=== PATIENT | female | born 1940 | race African-American/Black ===

== ENCOUNTER 2016-09-17 19:49 | Inpatient (IN) | payer MEDICARE ==
--- NOTE | ~2016-09-17 | HP ---
History And Physical [place] [id number] [facility] [place]. [address] NAME: TANIA DOTSON : 39 STATUS : ADM Alcides PAT#: [id number] AGE: 76 ADM/REG DATE : 09/17/16 MR#: [id number] REPORT SERV DATE: 09/21/16 DICTATED BY: LIVIA GARCIA DATE: 09/21/16 REPORT STATUS : Draft TRANSCRIBED BY: MODL DATE: 09/21/16 DATE OF ADMISSION: 09/17/2016 CHIEF COMPLAINT: Right hip pain. HISTORY OF PRESENT ILLNESS: This is a 76-year-old female who is a [employer] participant with history of end-stage renal disease, hypertension, hyperlipidemia, asthma with an allergy component who fell at home after she tripped while walking in her house. She was brought to the emergency room and a CT scan of the pelvis revealed an acute nondisplaced subcapital right femoral neck fracture. She has been admitted for further management. PAST MEDICAL HISTORY: 1. GI bleed. 2. End-stage renal disease, on hemodialysis. 3. Hypertension. 4. Diabetes mellitus. 5. Anemia secondary to end-stage renal disease. 6. Hyperlipidemia. 7. Asthma with an allergy component. 8. Vascular dementia. 9. Osteoarthritis. 10.Gastroesophageal reflux disease. 11.Osteoporosis. REVIEW OF SYSTEMS: A 10-point review of systems was performed and was negative except as mentioned above. FAMILY HISTORY: Noncontributory. SOCIAL HISTORY: The patient lives alone. She has 2 daughters who are actively involved in her care. She is nonsmoker and denies any illicit drug use. She is a [employer] participant. ALLERGIES: NO KNOWN DRUG ALLERGIES. MEDICATIONS: Please see the medication list for details, but in brief, she is on amlodipine 10 mg daily, aspirin 81 mg, budesonide twice a day, calcitriol 0.25 mcg daily, Coreg 25 mg twice a day, Claritin 10 mg daily, clonidine 0.1 mg twice daily, Colace 100 mg twice a day, furosemide 40 mg in the evening, Dymista, lisinopril 10 mg daily, melatonin 1 mg at bedtime, Nephro-Mitchell 1 tablet daily, Perforomist 20 mcg twice a day, Prilosec 20 mg at bedtime, Renvela 800 mg, 3 tablets with meals, Robitussin DM p.r.n., simvastatin 20 mg daily, Singulair 10 mg daily, sodium bicarbonate 650 mg, trazodone 100 mg at bedtime, Tylenol p.r.n., Ventolin inhaler p.r.n., and vitamin D 1000 units daily. PHYSICAL EXAMINATION: VITAL SIGNS: Temperature 98.3, pulse 84, blood pressure 151/73, respirations 15, O2 History And Physical [address] [address] NAME: TANIA DOTSON : 39 STATUS : ADM Alcides PAT#: [id number] AGE: 76 ADM/REG DATE : 09/17/16 MR#: [id number] REPORT SERV DATE: 09/21/16 DICTATED BY: LIVIA GARCIA DATE: 09/21/16 REPORT STATUS : Draft TRANSCRIBED BY: JADA DATE: 09/21/16 saturation 98% on room air. GENERAL: The patient is alert, awake, in no acute distress. HEENT: Pupils are reactive to light. No icterus or significant pallor noted. Oropharynx was moist. NECK: Supple. No JVD noted. CHEST: Clear to auscultation bilaterally. Normal respiratory effort. CARDIOVASCULAR: Regular rate and rhythm, has a 2 x 6 systolic murmur. ABDOMEN: Soft, nontender, nondistended. Bowel sounds are present. EXTREMITIES: No edema noted. No cyanosis. Right leg appears externally rotated. LABORATORY DATA: Sodium 136, potassium 4.4, chloride 97, BUN 24, creatinine 5.75, glucose is 130, calcium 9.6. WBC 5.7, hemoglobin 11.6, hematocrit 35.2, platelets 227. Chest x-ray revealed stable enlargement of the cardiac silhouette. CT scan of the pelvis revealed an acute nondisplaced subcapital right femoral neck fracture without impaction. ASSESSMENT AND PLAN: 1. Right hip fracture, management per Ortho. The patient has not been able to withstand weightbearing and standing up and walking with the physical therapist and she will likely need surgery. 2. End-stage renal disease. The patient is on hemodialysis Tuesday, Tuesday, and Tuesday. Renal has been consulted and they will be seeing her and ordering dialysis. 3. Hypertension. Blood pressures are better now that she has received her antihypertensives. She did have higher systolic blood pressures in the 180-200 range when she was admitted initially. P.r.n. hydralazine has been ordered. 4. Asthma with allergies. We will continue her home medications. 5. Hyperlipidemia, on simvastatin. We will continue the same. 6. Preop risk. EKG was evaluated. She has a baseline abnormal EKG with some Q-waves present; however, she has no complaints of chest pain at this time. She also has increased risk secondary to her end-stage renal disease. However, I feel at this point with the Rogers cardiac risk index being around 2.4% for the risk of major cardiac complications, her risks are definitely lower than the benefits of surgery. I discussed the same with the patient and she was wanting to proceed with surgery. CODE STATUS: CPR for treatment. SIRISHA/JADA Livia Garcia M.D. / [id number] CC: Marielle White M.D.
--- NOTE | ~2016-09-17 | CN ---
Consultation Report [facility] [address] [place]. [address] NAME: TANIA DOTSON : 38 STATUS : ADM Alcides PAT#: [id number] AGE: 76 ADM/REG DATE : 09/17/16 MR#: [id number] REPORT SERV DATE: 09/19/16 DICTATED BY: PADMINI RUIZ DATE: 09/18/16 REPORT STATUS : Draft TRANSCRIBED BY: MODL DATE: 09/18/16 DATE OF CONSULTATION: 09/18/2016 CHIEF COMPLAINT: Right hip pain. HISTORY OF PRESENT ILLNESS: This pleasant 76-year-old female noted to have a same-level fall, was brought to [facility] Emergency Room, where she was noted to have a nondisplaced right femoral neck fracture, that was picked up on CT scan but normal on plain film. I was subsequently consulted. PAST MEDICAL HISTORY: Significant for end-stage renal disease with dialysis three times a week; history of malignant hypertension; type 2 diabetes, diet controlled; chronic anemia; hyperlipidemia; asthma; and sleep apnea. ALLERGIES: NO KNOWN DRUG ALLERGIES. CURRENT MEDICATIONS: Simvastatin, Claritin, carvedilol, Renvela, Singulair, Perforomist, nebulizer, trazodone, Prilosec, Colace. SOCIAL HISTORY: She lives alone. Retired. Nonsmoker. She has a daughter and a granddaughter who is a nurse practitioner who are active in her care and I have spoken with today. FAMILY HISTORY: Noncontributory. REVIEW OF SYSTEMS: No headache, chest pain, nausea, vomiting, or other constitutional symptoms per full 14- point systematic review. PHYSICAL EXAMINATION: GENERAL: On exam, I see lady who looks stated age. AAO x3. Pleasant, cooperative, and in no apparent distress. She was examined in her room of 234 on the morning of 09/18/2016. HEENT: Pupils equally round and reactive to light and accommodation. Extraocular muscles intact. CHEST: Clear auscultation bilaterally. HEART: Regular rate and rhythm. ABDOMEN: Soft, nontender, nondistended. Bowel sounds are present. Bilateral upper extremities and left lower extremity shows good active and passive range of motion. Good distal pulses. No peripheral edema. Good sensation. Her right lower extremity is limited by right groin pain but otherwise no skin breaks. Good distal pulses. No peripheral edema. Good sensation. RADIOGRAPHS: Normal CT scan, nondisplaced, valgus impacted femoral neck fracture. Original plan was physical therapy and nonoperative treatment, however, she did not tolerate physical therapy, and upon my examination this afternoon approximately 4:30 in the afternoon, she Consultation Report [place] [id number] [place]. [address] NAME: TANIA DOTSON : 39 STATUS : ADM Alcides PAT#: [id number] AGE: 76 ADM/REG DATE : 09/17/16 MR#: [id number] REPORT SERV DATE: 09/19/16 DICTATED BY: PADMINI RUIZ DATE: 09/18/16 REPORT STATUS : Draft TRANSCRIBED BY: JADA DATE: 09/18/16 wishes to have undergo closed reduction percutaneous pinning, and she does not believe that she will be able tolerate nonoperative care. I have discussed the risks and benefits at length with her. I have also discussed with her daughter and granddaughter risks and benefits of conservative closed treatment versus closed reduction percutaneous pinning versus should this fail total hip arthroplasty. They verbalized understanding and wished to proceed. RAI/JADA Padmini Ruiz M.D. / [id number] CC: Bekah Valentine M.D.
--- NOTE | ~2016-09-17 | OP ---
Record Of Operation [facility] [address] [place]. [address] NAME: TANIA DOTSON : 38 STATUS : ADM Alcides PAT#: [id number] AGE: 76 ADM/REG DATE : 09/17/16 MR#: [id number] REPORT SERV DATE: 09/21/16 DICTATED BY: MENDEL RAMIREZ DATE: 09/21/16 REPORT STATUS : Draft TRANSCRIBED BY: MODL DATE: 09/21/16 DATE OF PROCEDURE: 09/20/2016 PREOPERATIVE DIAGNOSIS: Right femoral neck fracture, impacted. POSTOPERATIVE DIAGNOSIS: Right femoral neck fracture, impacted. PROCEDURE: ORIF, right femoral neck fracture. SURGEON: Gloria Ramirez M.D. VOLUNTEER SERVICES SPECIALIST: See chart. DESCRIPTION OF PROCEDURE: The patient was taken to the operating room and placed supine on the table in normal fashion without incident. Sedation was induced per the anesthesiologist. The patient was carefully positioned, padded, prepped, and draped in normal sterile fashion on the fracture table. Local infiltration of 10 mL of 1% lidocaine and 10 mL of 0.25% Marcaine with epinephrine were done. This allowed placement of a percutaneous guidewire center of the femoral head, checked in the AP and lateral views. This was followed by small incision. Parallel pin guide used to place two other pins. This was followed by depth gauge, drilling near cortex, and the screws were placed and tightened. The wound was irrigated, closed, and dressed sterilely. After checking the AP and lateral views, the patient was awakened and taken to the postanesthesia care unit without incident. COMPLICATIONS: None. SPECIMENS: None. ESTIMATED BLOOD LOSS: About 10 mL. WTB/MODL Gloria Ramirez M.D. / [id number] CC: Marielle White M.D.
[2016-09-17 19:38] LABS: ALKALINE PHOSPHATASE 116 U/L (45-117); CALCIUM, SERUM 9.6 MG/DL (8.5-10.4); CHLORIDE, SERUM 97 MMOL/L (96-112); CREATININE 5.75 MG/DL (0.55-1.02); GFR AFRICAN AMERICAN 8 ML/MIN (>=60); GFR NON AFRICAN AMERICAN 7 ML/MIN (>=60); GLOBULIN 3.6 G/DL (2.5-4.1); GLUCOSE, SERUM 130 MG/DL (60-99); POTASSIUM, SERUM 4.4 MMOL/L (3.5-5.3); SGOT(AST) 16 U/L (5-40); SGPT(ALT) 19 U/L (5-65); SODIUM, SERUM 136 MMOL/L (135-148); TOTAL BILIRUBIN 0.3 MG/DL (0-1.2); TOTAL PROTEIN 7.3 G/DL (6.0-8.5)
[2016-09-17 19:39] LABS: ALBUMIN 3.7 G/DL (3.5-5.0); BUN (BLOOD UREA NITROGEN) 24 MG/DL (6-23); CO2 (CARBON DIOXIDE) 36 MMOL/L (24-34)
[~2016-09-17 19:49] MED LIST: ACET500CAP PO; AMARYL1 MG PO; ASAB PO; CAT1 PO; CAT2 PO; CLARIT10 PO; COREG25 PO; DOK100 MG PO; DSS PO; DYMISTA NASAL S23 GM NAS; GGDM5ML PO; GLUCOSE GEL; HALF81 PO; IMOD PO; L20 PO; L40 PO; MULTIPLE VIT PO; NEPHRO-VITE PO; NORV10 PO; NORV25 PO; PERFOROM INH; PRILO PO; PRIN10 PO; PROAIR HFA INH; PROCRIT IM; PULRESP.5 INH; RENVELA800 MG PO; RHINOCORT; ROCALTROL 0.0.25 MCG PO; ROCALTROL0.25 MCG OR; ROCALTROL0.25 MCG PO; SENTAB PO; SEVE800T PO; SINGULAIR1 PO; SODBICAR10 PO; TRAZ100 PO; VITAMIN D1000 UNI1 PO; ZOCOR10 PO; ZOCOR20 PO
[2016-09-17 20:38] LABS: BASOPHILS 0.5 %; BASOPHILS ABSOLUTE 0.03 10/3/uL (0.0-0.16); EOSINOPHILS 2.1 %; EOSINOPHILS ABSOLUTE 0.12 10/3/uL (0.0-0.53); HEMATOCRIT 35.2 % (36.0-48.0); HEMOGLOBIN 11.6 g/dL (12.0-16.0); IMMATURE GRANULOCYTES 0.2 %; IMMATURE GRANULOCYTES ABSOLUTE 0.01 10/3/uL (0.0-0.11); LYMPHOCYTES 15.1 %; LYMPHOCYTES ABSOLUTE 0.86 10/3/uL (0.67-4.30); MEAN CORPUSCULAR HEMOGLOB 31.3 pg (26.0-34.0); MEAN PLATELET VOLUME 10.6 fL (9.2-13.0); MONOCYTES 8.8 %; NEUTROPHILS 73.3 %; NEUTROPHILS ABSOLUTE 4.17 10/3/uL (2.02-8.40); PLATELET COUNT 227 10/3/uL (150-400); RBC DISTRIBUTION WIDTH 13.7 % (12.0-16.0); RED CELL COUNT 3.71 10/6/uL (4.0-5.6); WHITE BLOOD CELLS 5.7 10/3/uL (4.5-10.5)
[2016-09-17 20:39] LABS: ER CBC TAT 1 Hrs 20 Mins; MANUAL DIFF NO %; MEAN CORPUSCULAR VOLUME 94.9 fL (80-100)
[2016-09-17] MEDS ORDERED: NORV10 PO (21:14)
[2016-09-17] MEDS ORDERED: HALF81 PO (21:15)
[2016-09-17] MEDS ORDERED: CAT1 PO (21:15)
[2016-09-17] MEDS ORDERED: PRIN10 PO (21:16)
[2016-09-17] MEDS ORDERED: PERFOROM INH (21:16)
[2016-09-17] MEDS ORDERED: L40 PO (21:16)
[2016-09-17] MEDS ORDERED: MELATONIN1 M1 PO (21:16)
[2016-09-17] MEDS ORDERED: RENVELA800 MG PO (21:17)
[2016-09-17] MEDS ORDERED: PULRESP.5 INH (21:17)
[2016-09-17] MEDS ORDERED: PRILO PO (21:17)
[2016-09-17] MEDS ORDERED: GGDM5ML PO (21:18)
[2016-09-17] MEDS ORDERED: ZOCOR20 PO (21:18)
[2016-09-17] MEDS ORDERED: SODBICAR10 PO (21:18)
[2016-09-17] MEDS ORDERED: TRAZ100 PO (21:19)
[2016-09-17 22:09] LABS: ASCORBIC ACID (UR NOT ORDER) NEG (NEG); BILIRUBIN, URINE NEGATIVE (NEG); ER URINALYSIS TAT 0 Hrs 14 Mins; KETONE, URINE NEGATIVE (NEG); LEUKOCYTE ESTERASE(NOT OR NEG (NEG); NITRITE (URINE) NEG (NEG); WBC (NOT ORDERED) (RFLEX) < 1 (0-5)
[2016-09-18 17:46] LABS: PARTIAL THROMBO TIME 33.1 SEC (22.5-37.2)
[2016-09-18 19:34] LABS: INTERNATIONAL NORMAL RATI 1.1 UNITS (-); PROTIME (NOT ORD) 13.8 SEC (12.0-14.5)
[2016-09-19 06:11] LABS: BASOPHILS 0.3 %; BASOPHILS ABSOLUTE 0.02 10/3/uL (0.0-0.16); EOSINOPHILS 2.6 %; EOSINOPHILS ABSOLUTE 0.18 10/3/uL (0.0-0.53); HEMOGLOBIN 10.1 g/dL (12.0-16.0); IMMATURE GRANULOCYTES 0.3 %; IMMATURE GRANULOCYTES ABSOLUTE 0.02 10/3/uL (0.0-0.11); LYMPHOCYTES 15.9 %; LYMPHOCYTES ABSOLUTE 1.08 10/3/uL (0.67-4.30); MEAN CORPUS HGB CONC 33.2 g/dL (32.0-36.0); MEAN CORPUSCULAR HEMOGLOB 31.1 pg (26.0-34.0); MEAN CORPUSCULAR VOLUME 93.5 fL (80-100); MEAN PLATELET VOLUME 10.6 fL (9.2-13.0); MONOCYTES 10.6 %; MONOCYTES ABSOLUTE 0.72 10/3/uL (0.21-1.20); NEUTROPHILS 70.3 %; NEUTROPHILS ABSOLUTE 4.79 10/3/uL (2.02-8.40); PLATELET COUNT 185 10/3/uL (150-400); RBC DISTRIBUTION WIDTH 13.7 % (12.0-16.0); RED CELL COUNT 3.25 10/6/uL (4.0-5.6); WHITE BLOOD CELLS 6.8 10/3/uL (4.5-10.5)
[2016-09-19 06:12] LABS: HEMATOCRIT 30.4 % (36.0-48.0); MANUAL DIFF NO %
[2016-09-19 06:26] LABS: CHLORIDE, SERUM 100 MMOL/L (96-112); GLUCOSE, SERUM 117 MG/DL (60-99); POTASSIUM, SERUM 4.6 MMOL/L (3.5-5.3); SGOT(AST) 13 U/L (5-40); SGPT(ALT) 14 U/L (5-65); SODIUM, SERUM 132 MMOL/L (135-148); TOTAL BILIRUBIN 0.3 MG/DL (0-1.2); TOTAL PROTEIN 6.2 G/DL (6.0-8.5)
[2016-09-19 06:29] LABS: A/G RATIO 0.8 (0.7-1.9); ALBUMIN 2.8 G/DL (3.5-5.0); ALKALINE PHOSPHATASE 90 U/L (45-117); BUN (BLOOD UREA NITROGEN) 46 MG/DL (6-23); CO2 (CARBON DIOXIDE) 27 MMOL/L (24-34); CREATININE 8.64 MG/DL (0.55-1.02); GFR AFRICAN AMERICAN 5 ML/MIN (>=60); GFR NON AFRICAN AMERICAN 4 ML/MIN (>=60); GLOBULIN 3.4 G/DL (2.5-4.1)
[2016-09-19 06:33] LABS: INTERNATIONAL NORMAL RATI 1.2 UNITS (-); PROTIME (NOT ORD) 14.7 SEC (12.0-14.5)
[2016-09-20 08:12] LABS: BASOPHILS 0.1 %; BASOPHILS ABSOLUTE 0.01 10/3/uL (0.0-0.16); EOSINOPHILS 2.7 %; EOSINOPHILS ABSOLUTE 0.21 10/3/uL (0.0-0.53); HEMATOCRIT 27.9 % (36.0-48.0); HEMOGLOBIN 9.6 g/dL (12.0-16.0); IMMATURE GRANULOCYTES 0.3 %; IMMATURE GRANULOCYTES ABSOLUTE 0.02 10/3/uL (0.0-0.11); LYMPHOCYTES 9.1 %; LYMPHOCYTES ABSOLUTE 0.71 10/3/uL (0.67-4.30); MEAN CORPUS HGB CONC 34.4 g/dL (32.0-36.0); MEAN CORPUSCULAR HEMOGLOB 31.8 pg (26.0-34.0); MEAN CORPUSCULAR VOLUME 92.4 fL (80-100); MEAN PLATELET VOLUME 10.7 fL (9.2-13.0); MONOCYTES 9.4 %; MONOCYTES ABSOLUTE 0.73 10/3/uL (0.21-1.20); NEUTROPHILS 78.4 %; NEUTROPHILS ABSOLUTE 6.08 10/3/uL (2.02-8.40); PLATELET COUNT 166 10/3/uL (150-400); RBC DISTRIBUTION WIDTH 13.7 % (12.0-16.0); RED CELL COUNT 3.02 10/6/uL (4.0-5.6); WHITE BLOOD CELLS 7.8 10/3/uL (4.5-10.5)
[2016-09-20 08:14] LABS: MANUAL DIFF NO %
[2016-09-20 08:25] LABS: ALBUMIN 2.6 G/DL (3.5-5.0); CHLORIDE, SERUM 95 MMOL/L (96-112); CO2 (CARBON DIOXIDE) 26 MMOL/L (24-34); PHOSPHORUS, SERUM 5.7 MG/DL (2.5-4.5); POTASSIUM, SERUM 5.1 MMOL/L (3.5-5.3); SODIUM, SERUM 133 MMOL/L (135-148)
[2016-09-20 08:26] LABS: BUN (BLOOD UREA NITROGEN) 68 MG/DL (6-23); GFR AFRICAN AMERICAN 3 ML/MIN (>=60); GFR NON AFRICAN AMERICAN 3 ML/MIN (>=60); GLUCOSE, SERUM 156 MG/DL (60-99)
[2016-09-20 13:52] LABS: ASCORBIC ACID (UR NOT ORDER) NEG (NEG); BILIRUBIN, URINE NEGATIVE (NEG); KETONE, URINE NEGATIVE (NEG); LEUKOCYTE ESTERASE(NOT OR LARGE (NEG); WBC (NOT ORDERED) (RFLEX) 43 (0-5)
[2016-09-21 05:03] LABS: BASOPHILS 0.3 %; BASOPHILS ABSOLUTE 0.02 10/3/uL (0.0-0.16); EOSINOPHILS 2.4 %; EOSINOPHILS ABSOLUTE 0.18 10/3/uL (0.0-0.53); HEMATOCRIT 30.1 % (36.0-48.0); HEMOGLOBIN 9.8 g/dL (12.0-16.0); IMMATURE GRANULOCYTES 0.3 %; IMMATURE GRANULOCYTES ABSOLUTE 0.02 10/3/uL (0.0-0.11); INTERNATIONAL NORMAL RATI 1.2 UNITS (-); LYMPHOCYTES 9.2 %; LYMPHOCYTES ABSOLUTE 0.69 10/3/uL (0.67-4.30); MEAN PLATELET VOLUME 11.1 fL (9.2-13.0); MONOCYTES 12.1 %; MONOCYTES ABSOLUTE 0.91 10/3/uL (0.21-1.20); NEUTROPHILS 75.7 %; PLATELET COUNT 190 10/3/uL (150-400); PROTIME (NOT ORD) 15.2 SEC (12.0-14.5); RBC DISTRIBUTION WIDTH 13.7 % (12.0-16.0); RED CELL COUNT 3.16 10/6/uL (4.0-5.6); WHITE BLOOD CELLS 7.5 10/3/uL (4.5-10.5)
[2016-09-21 05:04] LABS: MANUAL DIFF NO %; MEAN CORPUS HGB CONC 32.6 g/dL (32.0-36.0); MEAN CORPUSCULAR VOLUME 95.3 fL (80-100)
[2016-09-21 05:07] LABS: BUN (BLOOD UREA NITROGEN) 39 MG/DL (6-23); CALCIUM, SERUM 9.7 MG/DL (8.5-10.4); CHLORIDE, SERUM 102 MMOL/L (96-112); CO2 (CARBON DIOXIDE) 28 MMOL/L (24-34); CREATININE 7.87 MG/DL (0.55-1.02); GFR AFRICAN AMERICAN 5 ML/MIN (>=60); GFR NON AFRICAN AMERICAN 4 ML/MIN (>=60); GLUCOSE, SERUM 114 MG/DL (60-99); POTASSIUM, SERUM 4.5 MMOL/L (3.5-5.3); SODIUM, SERUM 141 MMOL/L (135-148)
[2016-09-22 04:32] LABS: HEMATOCRIT 27.8 % (36.0-48.0); HEMOGLOBIN 9.2 g/dL (12.0-16.0); MEAN CORPUS HGB CONC 33.1 g/dL (32.0-36.0); MEAN CORPUSCULAR VOLUME 93.6 fL (80-100); MEAN PLATELET VOLUME 10.4 fL (9.2-13.0); PLATELET COUNT 215 10/3/uL (150-400); RBC DISTRIBUTION WIDTH 13.7 % (12.0-16.0); RED CELL COUNT 2.97 10/6/uL (4.0-5.6); WHITE BLOOD CELLS 5.9 10/3/uL (4.5-10.5)
[2016-09-22 04:38] LABS: INTERNATIONAL NORMAL RATI 1.2 UNITS (-); PROTIME (NOT ORD) 15.3 SEC (12.0-14.5)
[2016-09-22 04:39] LABS: MANUAL DIFF YES %
[2016-09-22 06:15] LABS: BASOPHILS 1 %; BASOPHILS ABSOLUTE (CALC) 0.06 10/3/uL (0.0-0.16); EOSINOPHILS 2 %; EOSINOPHILS ABSOLUTE (CALC) 0.12 10/3/uL (0.0-0.53); LYMPHOCYTES 16 %; LYMPHOCYTES ABSOLUTE (CALC) 0.94 10/3/uL (0.67-4.30); MONOCYTES 13 %; MONOCYTES ABSOLUTE (CALC) 0.77 10/3/uL (0.21-1.20); NEUTROPHILS ABSOLUTE (CALC) 4.01 10/3/uL (2.02-8.40); SEGMENTED NEUTROPHIL (0) 68 %; TOTAL NUCLEATED CELLS 100
[2016-09-22 06:16] LABS: PLATELET ESTIMATE ADQ (ADEQUATE); RBC MORPHOLOGY NORM (NORMAL)
[2016-09-22 09:32] LABS: ALBUMIN 2.7 G/DL (3.5-5.0); BUN (BLOOD UREA NITROGEN) 61 MG/DL (6-23); CALCIUM, SERUM 9.8 MG/DL (8.5-10.4); CHLORIDE, SERUM 99 MMOL/L (96-112); CO2 (CARBON DIOXIDE) 25 MMOL/L (24-34); CREATININE 9.82 MG/DL (0.55-1.02); GFR AFRICAN AMERICAN 4 ML/MIN (>=60); GFR NON AFRICAN AMERICAN 3 ML/MIN (>=60); GLUCOSE, SERUM 126 MG/DL (60-99); PHOSPHORUS, SERUM 4.1 MG/DL (2.5-4.5); POTASSIUM, SERUM 4.4 MMOL/L (3.5-5.3); SODIUM, SERUM 136 MMOL/L (135-148)
[2016-11-08] MEDS ORDERED: SINGULAIR1 PO (12:46)
[2016-11-08] MEDS ORDERED: VENTOLIN INH (12:46)
[2016-11-08] MEDS ORDERED: NEPHRO-VITE PO (12:49)
[2016-11-10] MEDS ORDERED: SPS 15 GM/60 ML PO (10:33)
[2016-12-27] MEDS ORDERED: NORCO1 TA2 PO (13:13)
[2016-12-27] MEDS ORDERED: RENVELA800 MG PO ×2 (13:14→13:29)
[2016-12-27] MEDS ORDERED: CLARIT10 PO (13:16)
[2016-12-27] MEDS ORDERED: DIOV80 PO (13:16)
[2016-12-27] MEDS ORDERED: COREG25 PO (13:17)
[2016-12-27] MEDS ORDERED: ACET500CAP PO (13:18)
[2016-12-27] MEDS ORDERED: GGDM5ML PO (13:20)
[2016-12-27] MEDS ORDERED: SENTAB PO (13:20)
[2016-12-27] MEDS ORDERED: MIRALAX POWDER1 PKT PO (13:21)
[2016-12-27] MEDS ORDERED: MELA3 PO (13:22)
[2016-12-27] MEDS ORDERED: ZOFRAN4 PO (13:23)
[2016-12-27] MEDS ORDERED: LISINOPRIL40 MG PO (13:23)
[2016-12-27] MEDS ORDERED: MULTIVITAMI1 PO (13:24)
[2016-12-27] MEDS ORDERED: GLUCOSE TAB PO (13:27)
[2016-12-27] MEDS ORDERED: VITAMIN D1000 UNI1 PO (13:29)
[2016-12-27] MEDS ORDERED: DSS PO (13:29)
[2016-12-27] MEDS ORDERED: ROCALTROL 0.0.25 MCG PO (13:30)
[2016-12-27] MEDS ORDERED: DYMISTA NAS (13:31)
[2016-12-27] MEDS ORDERED: BUDESONIDE INH (13:32)
[2016-12-27] MEDS ORDERED: PERFOROM INH (13:32)
[2016-12-27] MEDS ORDERED: GLUCOSE GEL PO (13:34)
== END 2016-09-22 16:18 | DRG 480 ==
LOC: ER 19:49 → 2SO 22:30 → SDC/OF 09-20 19:42 → 3SO 09-20 21:00
PROVIDERS: Internal Medicine Geriatric Medicine; Internal Medicine Nephrology; Nurse Practitioner; Registered Nurse; Specialist
PROC: 5A1D60Z (ICD-10-PCS; 2016-09-20)
PROC: 0QS804Z Reposition Right Femoral Shaft with Internal Fixation Device, Open Approach (ICD-10-PCS; principal; 2016-09-20 17:45)
DX: S72.001A Fracture of unspecified part of neck of right femur, initial encounter for closed fracture (principal); N18.6 End stage renal disease; I12.0 Hypertensive chronic kidney disease with stage 5 chronic kidney disease or end stage renal disease; N39.0 Urinary tract infection, site not specified; W18.30XA Fall on same level, unspecified, initial encounter; E78.5 Hyperlipidemia, unspecified; E87.5 Hyperkalemia
CPT/HCPCS: 36415; 71010; 72170; 72192; 73502-RT; 76000; 80048; 80053; 80069; 81001; 82962; 83735; 85025; 85610; 85730; 86850; 86900; 86901; 86920; 87086; 93005; 94640; 96374; 97110-GP; 97116-GP; 97162-GP; 97164-GP; 97165-GO; 97530-GP; 99285; A9270-GY; C1713; C1769; G0257; G8978-CN-GP; G8979-CL-GP; J0360; J0690; J1885; J2370; J3010; P9047